=== PATIENT | male | born 1950 | race African-American/Black ===

== ENCOUNTER 2017-08-11 10:10 | Outpatient (CLI) | payer MEDICARE, OTHER ==
[2017-08-11 13:19] LABS: #Basophils 0.1 thou/uL (0.0-0.2); #Eosinphils 0.1 thou/uL (0.0-0.7); #Lymphocytes 1.8 thou/uL (1.20-3.40); #Monocytes 0.4 thou/uL (0.11-0.59); #Neutrophils 3.6 thou/uL (1.40-6.50); %Basophils 0.9 % (0.0-1.0); %Eosinophils 0.9 % (0.0-10.0); %Lymphocytes 30.8 % (21.0-51.0); %Neutrophils 61.5 % (42.0-75.0); Hemoglobin 14.2 g/dL (14.0-18.0); Mean Corpuscular HGB CONC 32.7 g/dL (32.0-36.0); Mean Corpuscular Hemoglobin 26.9 pg (27.0-31.0); Mean Corpuscular Volume 82.3 fl (80.0-94.0); Mean Platelet Volume 6.5 fL (7.4-10.4); Platelet Count 306 thou/uL (130-400); RBC Distribution Width 12.4 % (11.5-14.5); Red Blood Cell (RBC) Count 5.28 mill/uL (4.70-6.10); White Blood Cell (WBC) Count 5.9 thou/uL (4.8-10.8)
[2017-08-11 13:23] LABS: ALT (SGPT) 11 U/L (8-55); AST (SGOT) 18 U/L (5-34); Albumin 4.6 g/dL (3.4-4.8); Alkaline Phosphatase 59 U/L (40-150); Anion Gap 16 mmol/L (10-20); BUN (Urea Nitrogen) 15 mg/dL (8.4-25.7); Bilirubin Negative (Negative); Bilirubin, Total 0.4 mg/dL (0.2-1.2); Blood, Urine Trace (Negative); Calc. Creatinine Clearance 0 mL/min (70-130); Carbon Dioxide 26 mmol/L (23-31); Cardiac Risk 2.2 (Less than 4.5); Chloride 102 mmol/L (98-107); Cholesterol 136 mg/dl (< 200 Desired); Clarity Clear (Clear); Estimated GFR-MDRD 89; Globulin 2.5 g/dL (2.4-3.5); Glucose 84 mg/dL (80-115); Glucose, Urine (Dipstick) Negative (Negative); HDL Cholesterol 62 mg/dL (>60 Neg Risk); LDL Cholesterol, Calculated 61 mg/dL; Leukocyte Negative (Negative); Nitrite Negative (Negative); Potassium 4.1 mmol/L (3.5-5.1); Protein, Total 7.1 g/dL (5.8-8.1); Protein, Urine (Dipstick) Trace mg/dL (Neg-Trace); Sodium 140 mmol/L (136-145); Triglycerides 63 mg/dL (Less than 150); Urobilinogen 0.2 mg/dL (0.2-1.0); pH, Urine 5.5 (5.0-9.0)
[2017-08-11 14:07] LABS: Bacteria/HPF Rare-Few HPF (None Seen); RBC/HPF 0-3 HPF (0-3); Transitional Epithelial 0-3 HPF (0-3); WBC/HPF 0-3 HPF (0-3)
[2017-08-11 14:08] LABS: Other Microscopic Description NO
[2017-08-11 18:59] LABS: Creatinine, Urine 305.29 mg/dL (63-166); Microalbumin Urine 3.2 mg/dL (0.5-50.0); Microalbumin/Creat Ratio 10.5 mg/g (Less than 30)
== END 2017-08-11 10:11 | disposition home or self-care (01) ==
LOC: NAVSJIPCSP 10:10
PROVIDERS: ATTEND Internal Medicine
DX: E11.9 Type 2 diabetes mellitus without complications (principal); I10 Essential (primary) hypertension
CPT/HCPCS: 36415; 80053; 80061; 81003; 81015; 82043; 83036; 85025